=== PATIENT | female | born 1965 | race Caucasian/White ===

== ENCOUNTER 2018-10-04 10:16 | Emergency (ER) | payer OTHER ==
[~2018-10-04] VITALS: Ht 149.9 cm; Wt 57.0 kg
--- NOTE | 2018-10-04 11:16 | NUR ---
FIRST CONTACT WITH PT. 53 YEAR OLD FEMALE PRESENTS WITH C/O "PAIN IN MY LITTLE PEE HOLE AREA". PT REPORTS, "IT HURTS TO URINATE, I AM FAMILIAR WITH THIS TYPE OF PAIN, I HAVE HAD BLADDER INFECTIONS MULTIPLE TIMES IN THE PAST. MY LAST BLADDER INFECTION WAS IN 1998" PT STATES, "I HAD SEX AND DIDN'T CLEAN MYSELF OFF RIGHT AFTER, I THINK THAT IS WHY THIS IS HAPPENING". PT REPORTS HX OF SJOGRENS, DIAGNOSED IN 2014, ALSO B CELL LYMPHOMA IN 2017. PT ALREADY COMPLETED TREATMENT FOR THE LYMPHOMA. CA DOCTOR IS PARISA AT [facility]. NO ACUTE SIGNS OF DISTRESS, VS STABLE, PT DENIES NEEDS. DON, SO, AT BEDSIDE.
[2018-10-04] MEDS ORDERED: OMEG1CAP23 PO (11:33)
[2018-10-04] MEDS ORDERED: DICL50TA4 PO (11:33)
[2018-10-04] MEDS ORDERED: HYDR200T72 PO (11:33)
[2018-10-04] MEDS ORDERED: ONDA4TAB7 PO (11:33)
[2018-10-04] MEDS ORDERED: ALPR2TAB5 PO (11:33)
[2018-10-04] MEDS ORDERED: FLUO5DRO2 EACHEYE (11:33)
[2018-10-04 12:05] LABS: MICROSCOPIC INDICATED
--- NOTE | 2018-10-04 12:43 | NUR ---
PT RESTING IN BED COMFORTABLY, NO SIGNS OF ACUTE DISTRESS. VS STABLE. SO AT BEDSIDE. PT DENIES ANY NEEDS AT THIS TIME.
[2018-10-04 13:07] LABS: CULTURE INDICATED? YES
[2018-10-04 13:25] VITALS: BP 126/77
--- NOTE | 2018-10-04 13:41 | NUR ---
ALL DC INSTRUCTIONS EXPLAINED TO PT AND SO. PT AND SO VERBALIZED UNDERSTANDING OF THE INSTRUCTIONS. PT DID NOT HAVE AN IV. PT DC'D IN STABLE CONDITION, STEADY ON FEET, AND DENIES ANY ADDITIONAL NEEDS.
== END 2018-10-04 13:43 | disposition home or self-care (01) ==
LOC: ED 10:47
DX: N30.00 Acute cystitis without hematuria (principal)
CPT/HCPCS: 81001; 87077; 87086; 87186; 99283